=== PATIENT | female | born 1990 | race American Indian/Alaskan Native ===

== ENCOUNTER 2021-01-24 10:55 | Emergency (ER) | payer MEDICAID, OTHER ==
[2021-01-24] MEDS ORDERED: ACETAMINOPHEN 500 MG TAB PO ONE (11:06)
[2021-01-24] MEDS ORDERED: IBUPROFEN 800 MG TAB PO ONE (11:06)
[2021-01-24 11:47] VITALS: BP 133/90
--- NOTE | 2021-01-24 12:03 | Cat Scan Report ---
CT CERVICAL SPINE WITHOUT CONTRAST INDICATION: fall neck pain "Pop" in neck. TECHNIQUE: Axial CT images of the spine were obtained. Sagittal and coronal reformatted images were produced. Al l CT scans at this location are performed using CT dose reduction for ALARA by means of automated exp osure control. COMPARISON: None available. FINDINGS: ACUTE FRACTURE(S) OR SUBLUXATION: None. SPINAL DEGENERATIVE CHANGES: No significant degenerative changes. PARASPINAL SOFT TISSUES: No soft tissue swelling or other acute abnormalities. ADDITIONAL FINDINGS: No significant additional findings. IMPRESSION: 1. No acute fracture or subluxation in the spine in neutral position. Signer Name: Rosalio Mueller MD Signed: 01/24/2021 11:59 AM Workstation Name: [id number]
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
== END 2021-01-24 12:40 | disposition home or self-care (01) ==
LOC: ED 10:55
DX: S13.9XXA Sprain of joints and ligaments of unspecified parts of neck, initial encounter (principal); Z88.6 Allergy status to analgesic agent; Z88.5 Allergy status to narcotic agent; W19.XXXA Unspecified fall, initial encounter; Y93.89 Activity, other specified; Y92.89 Other specified places as the place of occurrence of the external cause; Y99.0 Civilian activity done for income or pay
CPT/HCPCS: 72125; 99283